=== PATIENT | male | born 1960 | race Caucasian/White ===

== ENCOUNTER 2019-06-22 07:07 | Emergency (ER) | payer SELFPAY ==
[~2019-06-22] VITALS: Ht 177.8 cm; Wt 89.0 kg
[2019-06-22] MEDS ORDERED: ASPIRIN 325 MG TABLET PO ONE (07:45)
[2019-06-22 07:50] LABS: CALCIUM 9.4 mg/dL (8.5-10.1); CREATININE 0.8 mg/dL (0.7-1.3); GFR 99.6
[2019-06-22 07:56] LABS: BASO # 0.1 x10^3/uL (0.0-0.2); BASO % 1 % (0-3); EOS # 0.5 x10^3/uL (0.0-0.7); EOS % 6 % (0-3); HEMOGLOBIN 13.1 g/dL (13.0-17.5); LYMPH # 1.4 x10^3/uL (1.0-4.8); LYMPH % 18 % (24-48); MEAN CORPUSCULAR HEMOGLOBIN 29 pg (25-35); MEAN CORPUSCULAR HGB CONC 34 g/dL (31-37); MEAN CORPUSCULAR VOLUME 87 fL (79-100); MONO # 0.8 x10^3/uL (0.0-1.1); MONO % 10 % (0-9); NEUT # 5.3 x10^3uL (1.8-7.7); NEUT % 65 % (31-73); PLATELET COUNT 278 x10^3/uL (140-400); RED CELL DISTRIBUTION WIDTH 14.8 % (11.5-14.5); WHITE BLOOD COUNT 8.1 x10^3/uL (4.0-11.0)
--- NOTE | 2019-06-22 07:56 | PHYS DOC ---
Past History Past Medical History: CAD, Hypertension, Kidney Stones, Other Additional Past Medical Histor: PTSD Past Surgical History: Appendectomy, Coronary Bypass Surgery Smoking: Cigarettes Alcohol Use: None Drug Use: Heroin Adult General Chief Complaint Chief Complaint: CHEST WALL PAIN [facility] HPI Patient is a 58-year-old male who presented to ER today by private vehicle complaining of substernal chest pain that radiated to his arms BOTH side, bilateral arms pain, heart palpitation, associated with trouble breathing started 30 minutes prior to arrival. Patient also complaints of headache, bilateral leg weakness. He has history of coronary artery disease, triple bypass in the past. Patient has history hypertension, he is a smoker. Patient also abuses heroin, he had been injecting heroin for the last 2 years. Last time he used heroin was yesterday. Patient had not seen a doctor about A year. He normally goes to [facility]. Patient also complaint of headache. Patient denies any slurred speech, no blurry vision. He denies any cough or fever. Patient took a couple baby aspirin at home prior to arrival. Patient was on nitroglycerin, lisinopril and plavix but he ran out of these medications. He is scheduled to see his doctor at the [facility] in a few days. Review of Systems Review of Systems Constitutional: Denies fever or chills [] Eyes: Denies change in visual acuity, redness, or eye pain [] HENT: Denies nasal congestion or sore throat [] Respiratory: Denies cough or shortness of breath [] Cardiovascular: No additional information not addressed in HPI [] GI: Denies abdominal pain, nausea, vomiting, bloody stools or diarrhea [] : Denies dysuria or hematuria [] Musculoskeletal: Denies back pain or joint pain [] Integument: Denies rash or skin lesions [] Neurologic: Positive for headache,no focal weakness or sensory changes [] Endocrine: Denies polyuria or polydipsia [] All other systems were reviewed and found to be within normal limits, except as documented in this note. Current Medications Current Medications Current Medications Medications (Trade) Dose Ordered Sig/Angel Start Time Stop Time Status Last Admin Dose Admin Aspirin (William Aspirin) 325 mg 1X ONCE 06/22/19 07:45 06/22/19 07:46 DC Allergies Allergies Allergies Coded Allergies Type Severity Reaction Last Updated Verified No Known Drug Allergies 06/22/19 No Physical Exam Physical Exam Constitutional: Well developed, well nourished, no acute distress, non-toxic appearance. [] HENT: Normocephalic, atraumatic, bilateral external ears normal, oropharynx moist, no oral exudates, nose normal. [] Eyes: PERRLA, EOMI, conjunctiva normal, no discharge. [] Neck: Normal range of motion, no tenderness, supple, no stridor. [] Cardiovascular:Heart rate regular rhythm, no murmur [] Lungs & Thorax: Bilateral breath sounds clear to auscultation [] Abdomen: Bowel sounds normal, soft, no tenderness, no masses, no pulsatile masses. [] Skin: Warm, dry, no erythema, no rash. There are multiple old scar wounds on his upper extremities from heroin injection. Back: No tenderness, no CVA tenderness. [] Extremities: No tenderness, no cyanosis, no clubbing, ROM intact, no edema. [] Neurologic: Alert and oriented X 3, normal motor function, normal sensory function, no focal deficits noted. [] Psychologic: Affect normal, judgement normal, mood normal. He denies suicidal ideation, appeared very Anxious. Current Patient Data Vital Signs Vital Signs Date Time Temp Pulse Resp B/P (MAP) Pulse Ox O2 Delivery O2 Flow Rate FiO2 06/22/19 07:09 98.3 106 16 162/113 (129) 99 Room Air EKG EKG EKG was done at 7:15, heart rate 104 BPM,, no ST segment elevation. There is sinus tachycardia. Radiology/Procedures Radiology/Procedures [][address] [address] IMAGING REPORT Signed PATIENT: ELSIE LUX ACCOUNT: [id number] : 1960 LOCATION: ER AGE: 58 SEX: M EXAM STATUS: REG ER ORD. PHYSICIAN: VALENTINO RUFF DO REASON: headache,stroke symptoms 1 1/2 hrs ago PROCEDURE: CT HEAD WO CONTRAST Examination: CT HEAD WO CONTRAST History: Headache, stroke symptoms Comparison/Correlation: None Findings: Axial images of the head were obtained without contrast. Ventricles are normal size. No intracranial hemorrhage, midline shift, or mass effect. Bony structures are unremarkable. Orbits are unremarkable. Impression: No acute process. On 06/22/2019 at 8:13 AM, results were reported to the nurse assigned to this patient in the emergency Department. [facility] Compliance Statement: One or more of the following individualized dose reduction techniques were utilized for this examination: 1. Automated exposure control 2. Adjustment of the mA and/or kV according to patient size 3. Use of iterative reconstruction technique Electronically signed by: Fred Slater MD (06/22/2019 8:14 AM) [facility] DICTATED AND SIGNED BY: FRED SLATER MD DATE: 06/22/19 0814 CC: PCPTIKI; VALENTINO RUFF DO ~ [place] [address] IMAGING REPORT Signed PATIENT: ELSIE LUX ACCOUNT: [id number] : 1960 LOCATION: ER AGE: 58 SEX: M EXAM STATUS: REG ER ORD. PHYSICIAN: VALENTINO RUFF DO REASON: chest pain,HX of heart disease, pt states he had a stroke earlier PROCEDURE: PORTABLE CHEST 1V AP portable chest radiograph 06/22/2019 Clinical History: Chest pain. History of heart disease. An AP erect portable digital radiograph of the chest was obtained. No previous studies are available for comparison. The patient is post CABG procedure. The cardiac silhouette is borderline enlarged. The thoracic aorta is mildly tortuous. No acute pulmonary infiltrate is seen. No pneumothorax or pleural effusion is noted. Degenerative changes are seen involving the thoracic spine along with both shoulders. IMPRESSION: No acute abnormality is seen. Electronically signed by: Yandel Merino MD (06/22/2019 7:53 AM) [id number] DICTATED AND SIGNED BY: YANDEL MERINO MD DATE: 06/22/19 0753 CC: PCPTIKI; VALENTINO RUFF DO ~ Course & Med Decision Making Course & Med Decision Making Pertinent Labs and Imaging studies reviewed. (See chart for details) Patient is a 58-year-old male who was evaluated today in the ER due to chest pain, headache. work up so for did not reveal any acute problem however symptoms just started this morning. Patient was advised to be admitted to hospital for further evaluation due to his risk factors. Patient said he feels much better now he would rather go home. Patient's son is here with him. Patient would like a prescription for his lisinopril and his nitroglycerin. Patient will call his doctor at the [facility] today for follow-up tomorrow. He signed out against medical advise. Patient is awake alert oriented, he is medically competent to make medical decision,. No criteria for involuntary confinement. He fully understands the risks of sign out against medical advice including . Dragon Disclaimer Dragon Disclaimer This electronic medical record was generated, in whole or in part, using a voice recognition dictation system. Departure Departure: Impression: Primary Impression: Chest pain Disposition: AGAINST MEDICAL ADVICE Condition: STABLE Referrals: PCP,NO (PCP) follow up with your doctor today or tomorrow. Return if worsen symptoms. Patient Instructions: Discharge Against Medical Advice Scripts Nitroglycerin (NITROGLYCERIN SubLingual) 0.4 Mg Tab.subl 1 TAB SL UD PRN for chest pain, #25 TAB 0 Refills 1st sign of attack; may repeat every 5 mins; if pain persists after 3 in 15 min, medical attention is recommended Prov: VALENTINO RUFF DO 06/22/19 Lisinopril (LISINOPRIL) 10 Mg Tablet 1 TAB PO DAILY for htn, #30 TAB 0 Refills Prov: VALENTINO RUFF DO 06/22/19 HEART Score for Chest Pain PTs The HEART Score for CP Pts HEART Score for Chest Pain: HEART Score for Chest Pain Response (Comments) Value History Moderately Suspicious 1 ECG Normal 0 Age >45 - < 65 1 Risk Factors >3 Risk Factors or Hx CAD 2 Troponin < Normal Limit 0 Total 4 Risk Factors: Risk Factors: DM, Current or recent (<one month) smoker, HTN, HLP, family history of CAD, obesity. Risk Scores: Score 0 - 3: 2.5% MACE over next 6 weeks - Discharge Home Score 4 - 6: 20.3% MACE over next 6 weeks - Admit for Clinical Observation Score 7 - 10: 72.7% MACE over next 6 weeks - Early Invasive Strategies VALENTINO RUFF DO Jun 22, 2019 07:56
[2019-06-22 08:02] LABS: ALBUMIN 3.4 g/dL (3.4-5.0); ALBUMIN/GLOBULIN RATIO 0.6 (1.0-1.7); TOTAL BILIRUBIN 0.4 mg/dL (0.2-1.0)
[2019-06-22 08:05] VITALS: BP 148/90
--- NOTE | 2019-06-22 08:16 | RAD ---
Examination: CT HEAD WO CONTRAST History: Headache, stroke symptoms Comparison/Correlation: None Findings: Axial images of the head were obtained without contrast. Ventricles are normal size. No intracranial hemorrhage, midline shift, or mass effect. Bony structures are unremarkable. Orbits are unremarkable. Impression: No acute process. On 06/22/2019 at 8:13 AM, results were reported to the nurse assigned to this patient in the emergency Department. [facility] Compliance Statement: One or more of the following individualized dose reduction techniques were utilized for this examination: 1. Automated exposure control 2. Adjustment of the mA and/or kV according to patient size 3. Use of iterative reconstruction technique Electronically signed by: Fred Cano MD (06/22/2019 8:14 AM) [facility]
[2019-06-22] MEDS ORDERED: LISI10TA2 PO (08:34)
[2019-06-22] MEDS ORDERED: NITR0.4T22 SL (08:34)
--- NOTE | 2019-06-22 17:44 | EKG ---
[address] [address] Test Date: 2019-06-22 Test Time: 07:14:56 Pat Name: ELSIE LUX Department: Room: Gender: M Key Operator: : 1960 Requested By: VALENTINO RUFF Order Number: [id number] Reading MD: Measurements Intervals [place] Rate: 104 P: 29 DE: 206 QRS: 47 QRSD: 94 T: 49 QT: 334 QTc: 445 Interpretive Statements SINUS TACHYCARDIA PROLONGED DE INTERVAL QRS(T) CONTOUR ABNORMALITY CONSIDER ANTEROLATERAL MYOCARDIAL DAMAGE CONSISTENT WITH INFERIOR INFARCT PROBABLY OLD ABNORMAL ECG RI6.01 No previous ECG available for comparison
== END 2019-06-22 08:45 | disposition left against medical advice (07) ==
LOC: ER 07:07
DX: R07.2 Precordial pain (principal); I10 Essential (primary) hypertension; I25.10 Atherosclerotic heart disease of native coronary artery without angina pectoris; F17.210 Nicotine dependence, cigarettes, uncomplicated; Z90.49 Acquired absence of other specified parts of digestive tract; Z95.1 Presence of aortocoronary bypass graft
CPT/HCPCS: 36415; 70450; 71045; 80053; 83690; 83735; 83880; 84484; 85025; 85610; 85730; 93005; 99285